=== PATIENT | male | born 1955 | race Caucasian/White ===

== ENCOUNTER 2017-08-12 09:10 | Emergency (ER) | payer OTHER ==
[~2017-08-12] VITALS: Ht 200.7 cm; Wt 80.0 kg
[2017-08-12 09:42] LABS: HEMATOCRIT 38.6 % (39.0-50.0); HEMOGLOBIN 13.8 g/dl (14.0-18.0); IMMATURE GRANULOCYTES 0.2 % (0.0-1.0); MEAN CORPUSCULAR HGB 34.3 pG CALC (26.0-32.0); MEAN CORPUSCULAR HGB CONC 35.8 g/L CALC (32.0-36.0); NEUT# 5.83 thou/uL (1.82-7.42); RED BLOOD COUNT 4.02 mill/uL (4.70-6.10); RED CELL DISTRI WIDTH 12.4 % (11.5-15.5)
[2017-08-12 09:48] LABS: ALBUMIN 4.2 g/dL (3.2-5.0); ALKALINE PHOSPHATASE 85 u/l (38-126); ANION GAP 15 (6-22 (CALC)); BILIRUBIN, TOTAL 0.8 mg/dL (0.0-1.4); BUN 6 mg/dL (8-23); BUN/CREATININE RATIO 10 (12-20 (CALC)); CALCIUM 9.2 mg/dL (8.4-10.2); CARBON DIOXIDE 22 mmol/l (22-30); CHLORIDE 104 mmol/l (95-108); CREATININE 0.6 mg/dL (0.7-1.3); ETHYL ALCOHOL 0 mg/dl (0-30); GFR > 60 ML/MIN (>=60 (CALC)); GFR FOR AFR.AMER. > 60 ML/MIN (>=60 (CALC)); GLUCOSE 81 mg/dL (82-115); POTASSIUM 4.4 mmol/l (3.5-5.1); SGOT/AST 35 u/l (19-48); SGPT/ALT 35 u/l (11-66); SODIUM 137 mmol/l (137-146); TOTAL PROTEIN 7.8 g/dL (6.3-8.2)
[2017-08-12 09:56] LABS: URINE BILIRUBIN - DIPSTICK NEGATIVE (NEGATIVE); URINE BLOOD DIPSTICK NEGATIVE (NEGATIVE); URINE CLARITY CLEAR; URINE COLOR YELLOW; URINE GLUCOSE - DIPSTICK NEGATIVE (NEGATIVE); URINE KETONE NEGATIVE (NEGATIVE); URINE LEUK ESTERASE NEGATIVE (NEGATIVE); URINE NITRITE - DIPSTICK NEGATIVE (Negative); URINE PH 7.5 (4.5-8.0); URINE PROTEIN - DIPSTICK NEGATIVE (NEG-TRACE); URINE SPECIFIC GRAVITY 1.015; URINE UROBILINOGEN - DIPSTICK 0.2 E.U./dL (0.2)
[2017-08-12 09:59] LABS: MYOGLOBIN 40 ng/mL (0 - 121)
[2017-08-12 10:00] LABS: COCAINE NEGATIVE (NEGATIVE); METHADONE NEGATIVE (NEGATIVE); TETRAHYDROCANNABIONOL POSITIVE (NEGATIVE)
[2017-08-12 10:01] LABS: BARBITURATES NEGATIVE (NEGATIVE); OXCYCODONE NEGATIVE (NEGATIVE); TRICYLIC ANTIDEPRESSANTS NEGATIVE (NEGATIVE)
[2017-08-12] MEDS ORDERED: TAMSULOSIN HCL0.4 MG PO (10:07)
[2017-08-12] MEDS ORDERED: LEVETIRACETAM1000 MG PO (10:58)
[2017-08-12] MEDS ORDERED: HYDROCO/APAP1 TA9 PO (10:59)
[2017-08-12] MEDS ORDERED: CILOSTAZOL100 MG PO (11:00)
[2017-08-12] MEDS ORDERED: PAROXETINE10 MG PO (11:00)
[2017-08-12 13:03] VITALS: BP 179/91
== END 2017-08-12 13:09 | disposition home or self-care (01) | DRG 312 ==
LOC: ED 09:10
PROVIDERS: Emergency Medicine
PROC: 0HQ1XZZ Repair Face Skin, External Approach (ICD-10-PCS; principal; 2017-08-12)
DX: R55 Syncope and collapse (principal); I10 Essential (primary) hypertension; S01.81XA Laceration without foreign body of other part of head, initial encounter; R42 Dizziness and giddiness; R51 Headache; Y92.009 Unspecified place in unspecified non-institutional (private) residence as the place of occurrence of the external cause; Z91.19 Patient's noncompliance with other medical treatment and regimen

== ENCOUNTER 2018-07-30 10:30 | Emergency (ER) | payer MEDICAID ==
[~2018-07-30] VITALS: Ht 200.7 cm; Wt 90.0 kg
[~2018-07-30 10:30] MED LIST: CILOSTAZOL100 MG PO; HYDROCO/APAP1 TA9 PO; LEVETIRACETAM1000 MG PO; PAROXETINE10 MG PO; TAMSULOSIN HCL0.4 MG PO
[2018-07-30] MEDS ORDERED: ORPHENADRINE100 MG PO (13:00)
[2018-07-30] MEDS ORDERED: IBUPROFEN600 MG PO (13:00)
[2018-07-30] MEDS ORDERED: LORTAB 7.57.5 MG PO (13:00)
[2018-07-30] MEDS ORDERED: NARCAN4 MG/0.1 M (13:00)
[2018-07-30] MEDS ORDERED: [UNRECOGNIZED DRUG - SUPPLY] EX (13:06)
[2018-07-30 13:11] VITALS: BP 136/85
== END 2018-07-30 13:23 | disposition home or self-care (01) ==
LOC: ED 10:30
DX: S22.049A Unspecified fracture of fourth thoracic vertebra, initial encounter for closed fracture (principal); M54.6 Pain in thoracic spine; R56.9 Unspecified convulsions; X58.XXXA Exposure to other specified factors, initial encounter; Y92.009 Unspecified place in unspecified non-institutional (private) residence as the place of occurrence of the external cause; F17.200 Nicotine dependence, unspecified, uncomplicated

== ENCOUNTER 2018-10-04 09:01 | Emergency (ER) | payer SELFPAY ==
[~2018-10-04] VITALS: Ht 200.7 cm; Wt 80.0 kg
[~2018-10-04 09:01] MED LIST changes: +IBUPROFEN600 MG PO; +LORTAB 7.57.5 MG PO; +NARCAN4 MG/0.1 M; +ORPHENADRINE100 MG PO; +[UNRECOGNIZED DRUG - SUPPLY] EX
[2018-10-04 10:07] LABS: HEMATOCRIT 41.4 % (39.0-50.0); HEMOGLOBIN 14.3 g/dl (14.0-18.0); IMMATURE GRANULOCYTES 0.1 % (0.0-5.0); MEAN CELL VOLUME 96.3 fL CALC (80.0-100.0); MEAN CORPUSCULAR HGB 33.3 pG CALC (26.0-32.0); MEAN CORPUSCULAR HGB CONC 34.5 g/L CALC (32.0-36.0); NEUT# 6.11 thou/uL (1.82-7.42); RED BLOOD COUNT 4.3 mill/uL (4.70-6.10); RED CELL DISTRI WIDTH 13.5 % (11.5-15.5)
[2018-10-04 10:27] LABS: PROTHROMBIN TIME 10.3 SECONDS (9.0-12.5)
[2018-10-04 10:32] LABS: ALBUMIN 4.2 g/dL (3.2-5.0); ALKALINE PHOSPHATASE 80 u/l (38-126); ANION GAP 14 (6-22 (CALC)); BILIRUBIN, TOTAL 1.1 mg/dL (0.0-1.4); BUN 6 mg/dL (8-23); BUN/CREATININE RATIO 9 (12-20 (CALC)); CARBON DIOXIDE 27 mmol/l (22-30); CHLORIDE 98 mmol/l (95-108); CREATININE 0.7 mg/dL (0.7-1.3); GFR > 60 ML/MIN (>=60 (CALC)); GFR FOR AFR.AMER. > 60 ML/MIN (>=60 (CALC)); POTASSIUM 3.9 mmol/l (3.5-5.1); SGOT/AST 21 u/l (19-48); SODIUM 134 mmol/l (137-146); TOTAL PROTEIN 8.1 g/dL (6.3-8.2)
[2018-10-04 11:42] LABS: URINE BILIRUBIN - DIPSTICK NEGATIVE (NEGATIVE); URINE BLOOD DIPSTICK NEGATIVE (NEGATIVE); URINE CLARITY CLEAR; URINE COLOR YELLOW; URINE GLUCOSE - DIPSTICK NEGATIVE (NEGATIVE); URINE KETONE TRACE mg/dL (NEGATIVE); URINE LEUK ESTERASE NEGATIVE (NEGATIVE); URINE NITRITE - DIPSTICK NEGATIVE (Negative); URINE PH 7.5 (4.5-8.0); URINE PROTEIN - DIPSTICK NEGATIVE (NEG-TRACE); URINE UROBILINOGEN - DIPSTICK 0.2 E.U./dL (0.2)
[2018-10-04 11:45] LABS: BARBITURATES NEGATIVE (NEGATIVE); COCAINE NEGATIVE (NEGATIVE); METHADONE NEGATIVE (NEGATIVE); OXCYCODONE NEGATIVE (NEGATIVE); TETRAHYDROCANNABIONOL POSITIVE (NEGATIVE); TRICYLIC ANTIDEPRESSANTS NEGATIVE (NEGATIVE)
[2018-10-04 15:42] VITALS: BP 140/87
== END 2018-10-04 15:42 | disposition short-term general hospital (02) | DRG 200 ==
LOC: ED 09:01
PROVIDERS: Emergency Medicine
DX: J93.9 Pneumothorax, unspecified (principal); I47.0 Re-entry ventricular arrhythmia; F20.0 Paranoid schizophrenia; R55 Syncope and collapse; F17.200 Nicotine dependence, unspecified, uncomplicated; M54.2 Cervicalgia; Y93.01 Activity, walking, marching and hiking; Y92.414 Local residential or business street as the place of occurrence of the external cause

== ENCOUNTER 2019-03-05 10:29 | Emergency (ER) | payer OTHER ==
[~2019-03-05] VITALS: Ht 200.7 cm; Wt 90.0 kg
[2019-03-05 11:19] LABS: HEMATOCRIT 39.5 % (39.0-50.0); HEMOGLOBIN 13.6 g/dl (14.0-18.0); IMMATURE GRANULOCYTES 0.5 % (0.0-5.0); MEAN CELL VOLUME 95.6 fL CALC (80.0-100.0); MEAN CORPUSCULAR HGB 32.9 pG CALC (26.0-32.0); MEAN CORPUSCULAR HGB CONC 34.4 g/L CALC (32.0-36.0); NEUT# 5.28 thou/uL (1.82-7.42); RED BLOOD COUNT 4.13 mill/uL (4.70-6.10); RED CELL DISTRI WIDTH 12.5 % (11.5-15.5)
[2019-03-05 11:21] LABS: ALBUMIN 4.3 g/dL (3.2-5.0); ALKALINE PHOSPHATASE 90 u/l (38-126); ANION GAP 13 (6-22 (CALC)); BILIRUBIN, TOTAL 0.7 mg/dL (0.0-1.4); BUN 9 mg/dL (8-23); BUN/CREATININE RATIO 16 (12-20 (CALC)); CARBON DIOXIDE 24 mmol/l (22-30); CHLORIDE 96 mmol/l (95-108); CREATININE 0.6 mg/dL (0.7-1.3); GFR > 60 ML/MIN (>=60 (CALC)); GFR FOR AFR.AMER. > 60 ML/MIN (>=60 (CALC)); POTASSIUM 4.6 mmol/l (3.5-5.1); SGOT/AST 32 u/l (19-48); SODIUM 128 mmol/l (137-146); TOTAL PROTEIN 8.1 g/dL (6.3-8.2)
[2019-03-05] MEDS ORDERED: ONDANSETRON4 MG PO (13:05)
[2019-03-05] MEDS ORDERED: HYDROCO/APAP1 TA9 PO (13:05)
[2019-03-05] MEDS ORDERED: MOTRIN400 MG PO (13:05)
[2019-03-05 13:20] VITALS: BP 117/63
== END 2019-03-05 13:39 | disposition left against medical advice (07) ==
LOC: ED 10:29
PROVIDERS: Family Medicine
DX: S22.41XA Multiple fractures of ribs, right side, initial encounter for closed fracture (principal); S22.059A Unspecified fracture of T5-T6 vertebra, initial encounter for closed fracture; E87.1 Hypo-osmolality and hyponatremia; K56.7 Ileus, unspecified; I10 Essential (primary) hypertension; J44.9 Chronic obstructive pulmonary disease, unspecified; F17.200 Nicotine dependence, unspecified, uncomplicated; W18.39XA Other fall on same level, initial encounter; Z91.19 Patient's noncompliance with other medical treatment and regimen; R55 Syncope and collapse; R42 Dizziness and giddiness; R11.0 Nausea
CPT/HCPCS: Q9967

== ENCOUNTER 2020-03-15 07:36 | Day surgery (SDC) | payer MEDICAID ==
[~2020-03-15 07:36] MED LIST changes: +ALPRAZOLAM ER0.5 MG PO; +FINASTERIDE5 MG PO; +LISINOPRIL20 MG PO; +MOTRIN400 MG PO; +ONDANSETRON4 MG PO; +VITAMIN B-1100 M1 PO
[2020-03-15 08:03] LABS: BARBITURATES NEGATIVE (NEGATIVE); COCAINE NEGATIVE (NEGATIVE); METHADONE NEGATIVE (NEGATIVE); TETRAHYDROCANNABIONOL POSITIVE (NEGATIVE); TRICYLIC ANTIDEPRESSANTS NEGATIVE (NEGATIVE)
[2020-03-15 08:04] LABS: OXCYCODONE NEGATIVE (NEGATIVE)
[2020-03-15 10:14] VITALS: BP 133/78
== END 2020-03-15 10:35 | disposition home or self-care (01) ==
LOC: ENDO 07:36 → ORM 08:45 → ENDO 08:45
PROVIDERS: ATTEND Surgery
DX: D12.5 Benign neoplasm of sigmoid colon (principal); K63.5 Polyp of colon; Q43.9 Congenital malformation of intestine, unspecified; I10 Essential (primary) hypertension; J44.9 Chronic obstructive pulmonary disease, unspecified; F17.210 Nicotine dependence, cigarettes, uncomplicated; Z11.59 Encounter for screening for other viral diseases

== ENCOUNTER 2020-06-29 11:04 | Emergency (ER) | payer MEDICARE, MEDICAID ==
[~2020-06-29] VITALS: Ht 200.7 cm; Wt 100.0 kg
[2020-06-29 12:29] LABS: HEMATOCRIT 38.6 % (39.0-50.0); IMMATURE GRANULOCYTES 0.4 % (0.0-5.0); MEAN CELL VOLUME 94.6 fL CALC (80.0-100.0); MEAN CORPUSCULAR HGB 31.9 pG CALC (26.0-32.0); MEAN CORPUSCULAR HGB CONC 33.7 g/dL CAL (32.0-36.0); NEUT# 5.2 thou/uL (1.82-7.42); RED BLOOD COUNT 4.08 mill/uL (4.70-6.10); RED CELL DISTRI WIDTH 12.5 % (11.5-15.5)
[2020-06-29 12:50] LABS: ALKALINE PHOSPHATASE 75 u/l (38-126); ANION GAP 12 (6-22 (CALC)); BILIRUBIN, TOTAL 0.9 mg/dL (0.0-1.4); BUN 6 mg/dL (8-23); BUN/CREATININE RATIO 10 (12-20 (CALC)); CARBON DIOXIDE 26 mmol/l (22-30); CHLORIDE 98 mmol/l (95-108); CREATININE 0.7 mg/dL (0.7-1.3); GFR > 60 ML/MIN (>=60 (CALC)); GFR FOR AFR.AMER. > 60 ML/MIN (>=60 (CALC)); POTASSIUM 3.9 mmol/l (3.5-5.1); SGOT/AST 36 u/l (19-48); SODIUM 132 mmol/l (137-146); TOTAL PROTEIN 7.7 g/dL (6.3-8.2)
[2020-06-29] MEDS ORDERED: IBUPROFEN600 MG PO (13:48)
[2020-06-29] MEDS ORDERED: CYCLOBENZAPR5 MG PO (13:48)
[2020-06-29] MEDS ORDERED: ONDANSETRON4 MG PO (13:49)
[2020-06-29 14:01] VITALS: BP 146/71
== END 2020-06-29 13:56 | disposition home or self-care (01) ==
LOC: ED 11:04
PROVIDERS: Family Medicine
DX: M54.6 Pain in thoracic spine (principal); M54.5 Low back pain; R47.02 Dysphasia; I10 Essential (primary) hypertension; J44.9 Chronic obstructive pulmonary disease, unspecified; F17.200 Nicotine dependence, unspecified, uncomplicated; W18.30XA Fall on same level, unspecified, initial encounter; R94.31 Abnormal electrocardiogram [ECG] [EKG]

== ENCOUNTER 2020-11-10 17:59 | Emergency (ER) | payer MEDICARE ==
[~2020-11-10] VITALS: Ht 200.7 cm; Wt 91.6 kg
[~2020-11-10 17:59] MED LIST changes: +CYCLOBENZAPR5 MG PO
[2020-11-10 18:39] LABS: HEMATOCRIT 35.4 % (39.0-50.0); HEMOGLOBIN 12.1 g/dl (14.0-18.0); IMMATURE GRANULOCYTES 0.5 % (0.0-5.0); MEAN CELL VOLUME 96.5 fL CALC (80.0-100.0); MEAN CORPUSCULAR HGB CONC 34.2 g/dL CAL (32.0-36.0); NEUT# 6.24 thou/uL (1.82-7.42); RED BLOOD COUNT 3.67 mill/uL (4.70-6.10); RED CELL DISTRI WIDTH 13.2 % (11.5-15.5)
[2020-11-10 19:01] LABS: ALBUMIN 3.8 g/dL (3.2-5.0); ALKALINE PHOSPHATASE 73 u/l (38-126); BUN 9 mg/dL (8-23); BUN/CREATININE RATIO 11 (12-20 (CALC)); CHLORIDE 98 mmol/l (95-108); CREATININE 0.8 mg/dL (0.7-1.3); GFR > 60 ML/MIN (>=60 (CALC)); GFR FOR AFR.AMER. > 60 ML/MIN (>=60 (CALC)); SGOT/AST 56 u/l (19-48); TOTAL PROTEIN 7.3 g/dL (6.3-8.2)
[2020-11-10 19:03] LABS: ANION GAP 13 (6-22 (CALC)); BILIRUBIN, TOTAL 1.4 mg/dL (0.0-1.4); CARBON DIOXIDE 18 mmol/l (22-30); POTASSIUM 5.3 mmol/l (3.5-5.1); SODIUM 124 mmol/l (137-146)
[2020-11-10] MEDS ORDERED: LIPITOR20 M1 PO (20:48)
[2020-11-10 21:54] VITALS: BP 111/59
== END 2020-11-10 21:54 | disposition short-term general hospital (02) ==
LOC: ED 17:59
PROVIDERS: Family Medicine
DX: G40.409 Other generalized epilepsy and epileptic syndromes, not intractable, without status epilepticus (principal); R07.9 Chest pain, unspecified; I10 Essential (primary) hypertension; J44.9 Chronic obstructive pulmonary disease, unspecified; E78.5 Hyperlipidemia, unspecified; F41.9 Anxiety disorder, unspecified; F17.200 Nicotine dependence, unspecified, uncomplicated; Z20.822 Contact with and (suspected) exposure to COVID-19
CPT/HCPCS: J1953

== ENCOUNTER 2021-02-04 | Emergency (ER) | payer MEDICARE, MEDICAID ==
[~2021-02-04] MED LIST changes: +LIPITOR20 M1 PO
[2021-02-04] MEDS ORDERED: CEPHALEXIN500 M1 PO (11:26)
[2021-02-04] MEDS ORDERED: BACTRIM DS1 TAB PO (11:26)
[2021-02-04] MEDS ORDERED: KEFLEX500 M1 PO (12:08)
== END 2021-02-04 12:56 | disposition home or self-care (01) ==
PROC: 0H9FXZZ Drainage of Right Hand Skin, External Approach (ICD-10-PCS; principal; 2021-02-04)
DX: L03.011 Cellulitis of right finger (principal); I10 Essential (primary) hypertension; E78.5 Hyperlipidemia, unspecified; J44.9 Chronic obstructive pulmonary disease, unspecified; F41.9 Anxiety disorder, unspecified; F17.210 Nicotine dependence, cigarettes, uncomplicated

== ENCOUNTER 2021-02-24 10:24 | Emergency (ER) | payer MEDICARE, MEDICAID ==
[~2021-02-24 10:24] MED LIST changes: +BACTRIM DS1 TAB PO; +CEPHALEXIN500 M1 PO; +KEFLEX500 M1 PO
[2021-02-24 11:32] LABS: HEMATOCRIT 35.3 % (39.0-50.0); HEMOGLOBIN 11.9 g/dl (14.0-18.0); IMMATURE GRANULOCYTES 0.2 % (0.0-5.0); MEAN CELL VOLUME 96.2 fL CALC (80.0-100.0); MEAN CORPUSCULAR HGB 32.4 pG CALC (26.0-32.0); MEAN CORPUSCULAR HGB CONC 33.7 g/dL CAL (32.0-36.0); NEUT# 2.99 thou/uL (1.82-7.42); RED BLOOD COUNT 3.67 mill/uL (4.70-6.10); RED CELL DISTRI WIDTH 12.4 % (11.5-15.5)
[2021-02-24 11:46] LABS: ALBUMIN 3.8 g/dL (3.2-5.0); ALKALINE PHOSPHATASE 81 u/l (38-126); BUN 10 mg/dL (8-23); BUN/CREATININE RATIO 16 (12-20 (CALC)); CHLORIDE 98 mmol/l (95-108); CREATININE 0.6 mg/dL (0.7-1.3); GFR > 60 ML/MIN (>=60 (CALC)); GFR FOR AFR.AMER. > 60 ML/MIN (>=60 (CALC)); SGOT/AST 36 u/l (19-48); SODIUM 128 mmol/l (137-146); TOTAL PROTEIN 7.6 g/dL (6.3-8.2)
[2021-02-24 11:47] LABS: ANION GAP 7 (6-22 (CALC)); BILIRUBIN, TOTAL 0.6 mg/dL (0.0-1.4); CARBON DIOXIDE 27 mmol/l (22-30); POTASSIUM 4.2 mmol/l (3.5-5.1)
[2021-02-24 12:26] LABS: ACT PARTIAL THROMBO TIME 30.2 SECONDS (20.0-32.5); PROTHROMBIN TIME 10.4 SECONDS (9.0-12.5)
[2021-02-24] MEDS ORDERED: ULTRAM50 MG PO (13:26)
[2021-02-24 13:38] VITALS: BP 183/96
== END 2021-02-24 13:39 | disposition home or self-care (01) ==
LOC: ED 10:24
DX: L76.32 Postprocedural hematoma of skin and subcutaneous tissue following other procedure (principal); I10 Essential (primary) hypertension; F41.9 Anxiety disorder, unspecified; J44.9 Chronic obstructive pulmonary disease, unspecified; E78.5 Hyperlipidemia, unspecified; F17.210 Nicotine dependence, cigarettes, uncomplicated; Y83.1 Surgical operation with implant of artificial internal device as the cause of abnormal reaction of the patient, or of later complication, without mention of misadventure at the time of the procedure; Z95.820 Peripheral vascular angioplasty status with implants and grafts

== ENCOUNTER 2021-03-24 09:19 | Observation (INO) | payer MEDICARE, MEDICAID ==
[~2021-03-24] VITALS: Ht 200.7 cm; Wt 88.0 kg
[~2021-03-24 09:19] MED LIST changes: +ULTRAM50 MG PO
--- NOTE | 2021-03-24 09:19 | NUR ---
PT TO ROOM VIA EMS
[2021-03-24 09:54] LABS: HEMATOCRIT 35.4 % (39.0-50.0); IMMATURE GRANULOCYTES 0.3 % (0.0-5.0); MEAN CELL VOLUME 96.5 fL CALC (80.0-100.0); MEAN CORPUSCULAR HGB 32.7 pG CALC (26.0-32.0); MEAN CORPUSCULAR HGB CONC 33.9 g/dL CAL (32.0-36.0); NEUT# 8.02 thou/uL (1.82-7.42); RED BLOOD COUNT 3.67 mill/uL (4.70-6.10); RED CELL DISTRI WIDTH 12.8 % (11.5-15.5)
--- NOTE | 2021-03-24 10:30 | NUR ---
PT STATES THAT HIS INJURY OCCURED YESTERDAY AND THAT HE HAS NOT BEEN ABLE TO SLEEP ALL NIGHT. IT WAS SAID THAT HE FELL, AND HAD A SEIZURE. PT DOES SAY THAT HE DRINKS ABOUT 6-7 ALCOHOLIC DRINKS A DAY AND THAT HE HAS NOT CONSUMED ANY TODAY. HE IS SHACKY AND TREMBLING. HAMILTON. AOX4. MENTIONS PAIN 10/10 IN THE RIGHT KNEE THAT IS SWOLLEN. PMS+ IN THAT EXTREM. DENIES HITTING HIS HEAD.
[2021-03-24 10:46] LABS: ALBUMIN 3.4 g/dL (3.2-5.0); ALKALINE PHOSPHATASE 83 u/l (38-126); ANION GAP 10 (6-22 (CALC)); BILIRUBIN, TOTAL 0.5 mg/dL (0.0-1.4); BUN 8 mg/dL (8-23); BUN/CREATININE RATIO 13 (12-20 (CALC)); CARBON DIOXIDE 24 mmol/l (22-30); CHLORIDE 97 mmol/l (95-108); CREATININE 0.6 mg/dL (0.7-1.3); ETHYL ALCOHOL 0 mg/dl (0-30); GFR > 60 ML/MIN (>=60 (CALC)); GFR FOR AFR.AMER. > 60 ML/MIN (>=60 (CALC)); POTASSIUM 4.7 mmol/l (3.5-5.1); SGOT/AST 33 u/l (19-48); SODIUM 125 mmol/l (137-146); TOTAL PROTEIN 7.1 g/dL (6.3-8.2)
--- NOTE | 2021-03-24 11:13 | NUR ---
PT STATES THAT PAIN HAS SUBSIDED TO 7/10. EXPLAINATION OF PAIN MEDICATION IS GIVEN AND PLAN OF CARE DISCUSSED
--- NOTE | 2021-03-24 12:03 | NUR ---
PT NOTIFIED OF PENDING TRANSFER TO [facility] FOR CT SCAN. PLAN OF CARE DISCUSSED
--- NOTE | 2021-03-24 13:33 | NUR ---
PT LEFT TO [facility] FOR CT AND WILL RETURN. PT WAS STABLE AND MEDS FOR PAIN GIVEN BEFORE DEPARTURE
--- NOTE | 2021-03-24 14:46 | NUR ---
PT CONTINUES TO BE AT [facility]
--- NOTE | 2021-03-24 16:27 | NUR ---
PT RETURNED FROM [facility]. HE STATES THAT HE IS IN PAIN. IS NOTIFIED
[2021-03-24 17:10] LABS: URINE BILIRUBIN - DIPSTICK NEGATIVE (NEGATIVE); URINE BLOOD DIPSTICK NEGATIVE (NEGATIVE); URINE COLOR YELLOW; URINE GLUCOSE - DIPSTICK NEGATIVE (NEGATIVE); URINE KETONE NEGATIVE (NEGATIVE); URINE LEUK ESTERASE NEGATIVE (NEGATIVE); URINE PROTEIN - DIPSTICK NEGATIVE (NEG-TRACE); URINE UROBILINOGEN - DIPSTICK 0.2 E.U./dL (0.2)
[2021-03-24 17:11] LABS: URINE NITRITE - DIPSTICK NEGATIVE (Negative)
--- NOTE | 2021-03-24 18:29 | NUR ---
GAVE REPORT TO SCOTT
[2021-03-24 18:40] VITALS: BP 158/95
--- NOTE | 2021-03-24 18:40 | NUR ---
PT TRANSPORTED TO [facility] STABLE AND IN NO DISTRESS. CARE ASSUMED TO SCOTT Admission Note Report Given to: SCOTT Transported by: Wheelchair X Stretcher Transported with: X Nurse Transporter X Patent IV O2 X Location Manager Location: ICU X MS2
--- NOTE | 2021-03-24 18:41 | NUR ---
PT ARRIVED TO THE UNIT VIA STRETCHER WITH STAFF. IV SITE INTACT, SIDE RAILS HAVE BEEN PADDED. DUE TO POSSIBLE SEIZURE LAST NIGHT.
--- NOTE | 2021-03-24 20:00 | NUR ---
PT ARRIVED ON FLOOR ESCORTED BY ER STAFF VIA STRETCHER. KNEE IMMOBILIZER TO RLE D/T FX. PT COMPLAINS OF SEVERE PAIN TO RLE. PAIN MEDS ADMINSTERED. ALL ASSESSMENTS COMPLETED, SEE DOCUMENTATION. IV SITE TO LAC PLACED BY EMS, ATTEMPTED TO START A NEW LINE WITHOUS SUCCESS. CURRENTLY STILL USING EMS SITE. PT DOING WELL ON THE FLOOR SINCE ADMITTED TO THE UNIT. SAFETY PRECAUTIONS IN PLACE, BED IN LOWEST POSITION, CALL LIGHT WITHIN REACH. WILL MONITOR
[2021-03-25] VITALS (7 sets, daily range): BP systolic 125–162; BP diastolic 78–97
--- NOTE | 2021-03-25 01:29 | NUR ---
PT RESTING IN BED WITH HIS EYES CLOSED. REPORTS CONTOMIED PAIN, ADVISED OF THE PHYSICIAN ORDER THAT MEDS ARE TO BE GIVEN Q6HRS NEEDED. PT VERBALIZED UNDERSTANDING. BREATHING EVEN AND LABORED, NO S/S OF DISTRESS NOTED. SAFETY PRECAUTIONS IN PLACE.
--- NOTE | 2021-03-25 02:42 | NUR ---
PT AWAKE AND SITTING UP IN BED. CONTINUES TO C/O PAIN IN THE RLE. DISCUSSED WITH PT THE NEED TO COMPLETE THE MEDICATION RECONCILIATION, PT REFUSED AND STATED, "i DO NOT KNOW ALL OF MY MEDICATIONS, I NEED MY HERE" IS UNAVAILBLE UNTIL LATER IN THE DAY. WILL ADVISE DAY SHIFT
--- NOTE | 2021-03-25 04:13 | NUR ---
PT CONTINUES WITH SEVERE PAIN IN RLE, NOTIFIED fleet technician ADMINISTRATIVE SUPPORT ASSOCIATE. NEW ORDER RECEIVED FOR A ONE TIME DOSE OF MORPHINE 4MG IV. MEDICATION ADMINSTERED PER ORDER. WILL REASSESS.
[2021-03-25 06:02] LABS: HEMOGLOBIN 10.8 g/dl (14.0-18.0); MEAN CORPUSCULAR HGB 32.7 pG CALC (26.0-32.0); MEAN CORPUSCULAR HGB CONC 33.8 g/dL CAL (32.0-36.0); RED BLOOD COUNT 3.3 mill/uL (4.70-6.10); RED CELL DISTRI WIDTH 12.9 % (11.5-15.5)
--- NOTE | 2021-03-25 06:08 | NUR ---
PT RESTING IN BED WITH EYES CLOSED. ORDER RECEIVED FOR MORPHINE 4MG IV, PT REPORTS DECREASED [AIN LEVELS FOLLOWING MORPHINR ADMINSTRATION. CONSULT CALLED TO DR. EM OFFICE, SPOKE WITH VASU WITH DOCTORS TRIMMER OPERATOR THREE KNIFE SERVICE, PHYSICIAN AWARE OF CONSULT. SAFETY PRECAUTIONS IN PLACE WILL MONITOR
[2021-03-25 06:28] LABS: ANION GAP 8 (6-22 (CALC)); BUN 7 mg/dL (8-23); BUN/CREATININE RATIO 13 (12-20 (CALC)); CALCULATED LDLCHOLESTEROL 38 mg/dL (62-129 (CALC)); CARBON DIOXIDE 23 mmol/l (22-30); CHLORIDE 102 mmol/l (95-108); CHOLESTEROL HDL RATIO 2.1 (<4.4 (CALC)); CREATININE 0.5 mg/dL (0.7-1.3); GFR > 60 ML/MIN (>=60 (CALC)); GFR FOR AFR.AMER. > 60 ML/MIN (>=60 (CALC)); HDL CHOLESTEROL 46 mg/dL (>=40); MAGNESIUM 1.7 mg/dL (1.6-2.3); SODIUM 129 mmol/l (137-146); TOTAL CHOLESTEROL 97 mg/dl (0-199); TOTAL TRIGLYCERIDES 66 mg/dl (30-149); VLDL CHOLESTROL 13 mg/dl (4-45 (CALC))
--- NOTE | 2021-03-25 09:00 | NUR ---
PT SEEN AWAKE, ALERT, ORIENTED X 3. LUNGS CLEAR, RA. PT WITH BRACE TO RLE, REPOSITIONED FOR COMFORT, PT WAS FEELING IT DIG INTO HIS LEG. PT AWARE OF PENDING MRI THIS MORNING. IV INFILTRATED AND WAS RESTARTED TO RFA #20.
[2021-03-25] MEDS ORDERED: ZESTRIL10 M1 PO (12:39)
[2021-03-25] MEDS ORDERED: ALPRAZOLAM ER1 MG PO (12:39)
[2021-03-25] MEDS ORDERED: PAROXETINE30 M1 PO (12:41)
[2021-03-25] MEDS ORDERED: MOTRIN800 MG PO (12:43)
[2021-03-25] MEDS ORDERED: VOLTAREN1%GEL TOP ×2 (12:45→12:46)
--- NOTE | 2021-03-25 13:00 | NUR ---
PT HAS BEEN TO MRI AND BACK, TOLERATED MOST OF THE TEST, HE SAYS. PT IS ABLE TO TRANSFER HIMSELF TO BED WITH ASSIST. PAIN TOLERABLE WHEN NOT MOVING.
[2021-03-25] MEDS ORDERED: MAGNESIUM OXID400 M2 PO (13:21)
[2021-03-25] MEDS ORDERED: ASPIRIN 81 LOW81 MG PO (13:23)
[2021-03-25] MEDS ORDERED: VENTOLIN HFA IN (13:26)
[2021-03-25] MEDS ORDERED: VITAMIN B PO (13:27)
--- NOTE | 2021-03-25 17:21 | NUR ---
PT RECEIVED ATIVAN THIS AFTERNOON, STATES THAT HE WAS ABLE TO GET TO SLEEP. PAIN IS SOMEWHAT CONTROLLED WITH LORTAB, BUT IS IN HIGH PAIN WHEN IT BECOMES AVAILABLE AGAIN.
--- NOTE | 2021-03-25 20:10 | NUR ---
PT AWAKE RESTING IN BED. ALERT AND ORIENTED X4. RESP EVEN AND UNLABORED. SKIN WARM AND DRY. LUNGS CLEAR BILAT. ABD SOFT AND NONDISTENDED WITH BOWEL SOUNDS PRESENT. NO LOWER EXT EDEMA NOTED. PEDAL PULSES PALPATED BILAT. RT LEG IMMOBILIZER BRACE IS ON. IV SITE PATENT IN RT FOREARM WITH NSS AT 100CC/HR. PT DOES STATES HE HAS ACHING IN RT LEG. ASSISTED WITH REPOSITIONING. FOOT WARM TO TOUCH WITH GOOD CAPILLARY REFILL AND PEDAL PULSES PALPATED. TELE SR WITH IVCD AND PACS. FREQUENT ROUNDS MADE. CALL RENNER WITH IN REACH.
--- NOTE | 2021-03-25 20:49 | NUR ---
PT AWAKE RESTING IN BED. MEDICATED WITH LORTAB 7.5MG ONE TAB P.O FOR RT LEG PAIN. PT ASSISTED WITH REPOSITIONING. IV SITE PATENT. CALL RENNER WITHIN REACH.
--- NOTE | 2021-03-25 22:38 | NUR ---
PT MEDICATED WITH ATIVAN 1MG P.O FOR SLEEP. RESP EVEN AND UNLABORED. PT PLEASANT , CALM AND APPROPRAITE. IV SITE PATENT. NO DISTRESS NOTED. CALL RENNER WITHIN REACH.
--- NOTE | 2021-03-26 00:15 | NUR ---
PT RESTING IN BED WITH EYES CLOSED. RESP EVEN AND UNLABORED. NO DISTRESS NOTED. IV SITE PATENT. RT LEG IMMOBILIZER IS ON. FREQUENT ROUNDS MADE. CALL RENNER WITHIN REACH.
--- NOTE | 2021-03-26 02:32 | NUR ---
PT RECEIVED FROM ED TO ROOM 273. ARRIVES VIA W/C ACCOMPANIED BY ALBINO SPANN. PT AMBULATORY TO BED. GAIT STEADY. PT MEDICATED IN THE ED AND DENIES PAIN AT THIS TIME. ORIENTED TO UNIT, ROOM, CALL RENNER, LIGHTS, TV. ICE WATER PROVIDED. CALL RENNER WITHIN REACH. AGREES TO CALL PRN.
[2021-03-26 03:33] VITALS: BP 137/84
--- NOTE | 2021-03-26 03:56 | NUR ---
PT AWAKE RESTING IN BED. MEDICATED WITH LORTAB 7.5MG FOR RT LEG DISCOMFORT. IV SITE PATENT. RESP EVEN AND UNLABORED NO DISTRESS NOTED. FREQUENT ROUNDS MADE. CALL RENNER WITHIN REACH.
[2021-03-26 05:00] LABS: HEMATOCRIT 31.7 % (39.0-50.0); HEMOGLOBIN 10.6 g/dl (14.0-18.0); MEAN CELL VOLUME 98.4 fL CALC (80.0-100.0); MEAN CORPUSCULAR HGB 32.9 pG CALC (26.0-32.0); MEAN CORPUSCULAR HGB CONC 33.4 g/dL CAL (32.0-36.0); RED BLOOD COUNT 3.22 mill/uL (4.70-6.10); RED CELL DISTRI WIDTH 12.9 % (11.5-15.5)
[2021-03-26 05:22] LABS: ANION GAP 7 (6-22 (CALC)); BUN 5 mg/dL (8-23); BUN/CREATININE RATIO 10 (12-20 (CALC)); CARBON DIOXIDE 26 mmol/l (22-30); CHLORIDE 101 mmol/l (95-108); CREATININE 0.6 mg/dL (0.7-1.3); GFR > 60 ML/MIN (>=60 (CALC)); GFR FOR AFR.AMER. > 60 ML/MIN (>=60 (CALC)); POTASSIUM 3.8 mmol/l (3.5-5.1); SODIUM 130 mmol/l (137-146)
[2021-03-26 07:10] VITALS: BP 173/90
--- NOTE | 2021-03-26 09:53 | NUR ---
PT ALERT AND ORIENTED X 3. PT AMBULATED WITH WALKER TO BR, GAIT STEADY WITH SOME DISCOMFORT. IMMOBILIZER IN PLACE. PT HOPES FOR DC TODAY. DR HAYES HAS SEEN PT.
[2021-03-26 11:43] VITALS: BP 149/82
--- NOTE | 2021-03-26 13:37 | NUR ---
PT IS WANTING TO LEAVE AMA. IS AT BEDSIDE WITH HIS CLOTHES. DR HAYES HAS BEEN MADE AWARE, BUT ASKED FOR TIME TO CONTACT DR ROTH.
--- NOTE | 2021-03-26 14:49 | NUR ---
PT LEAVES AGAINST MEDICAL ADVISE. ALON HORTA PUT IN DISCHARGE ORDERS. PT VERBALIZED UNDERSTANDING OF DC PAPERS, SIGNED AMA FORM. PT LEAVES [facility] BY WHEELCHAIR, ASSISTED INTO VEHICLE. PT IS IN STABLE CONDITION, HAS BRACE TO RIGHT LEG PROVIDING SUPPORT.
== END 2021-03-26 14:35 | disposition left against medical advice (07) ==
LOC: ED 09:19 → ED-I 16:53 → ED 17:17 → MS2 17:18
PROVIDERS: Emergency Medicine; Nurse Practitioner; ADMIT Internal Medicine; ATTEND Internal Medicine
DX: S72.491A Other fracture of lower end of right femur, initial encounter for closed fracture (principal); S82.001A Unspecified fracture of right patella, initial encounter for closed fracture; F10.139 Alcohol abuse with withdrawal, unspecified; R56.9 Unspecified convulsions; E87.1 Hypo-osmolality and hyponatremia; I10 Essential (primary) hypertension; J44.9 Chronic obstructive pulmonary disease, unspecified; F41.9 Anxiety disorder, unspecified; E78.5 Hyperlipidemia, unspecified; D64.9 Anemia, unspecified; N40.0 Benign prostatic hyperplasia without lower urinary tract symptoms; F32.9 Major depressive disorder, single episode, unspecified; F17.210 Nicotine dependence, cigarettes, uncomplicated; I73.9 Peripheral vascular disease, unspecified; W01.0XXA Fall on same level from slipping, tripping and stumbling without subsequent striking against object, initial encounter; Y92.481 Parking lot as the place of occurrence of the external cause; Z95.820 Peripheral vascular angioplasty status with implants and grafts; Z20.822 Contact with and (suspected) exposure to COVID-19
CPT/HCPCS: G0378; J1650; J2060

== ENCOUNTER 2021-03-30 11:45 | Emergency (ER) | payer MEDICARE, MEDICAID ==
[~2021-03-30] VITALS: Ht 200.7 cm; Wt 82.0 kg
[~2021-03-30 11:45] MED LIST changes: +ALPRAZOLAM ER1 MG PO; +ASPIRIN 81 LOW81 MG PO; +MAGNESIUM OXID400 M2 PO; +MOTRIN800 MG PO; +PAROXETINE30 M1 PO; +VENTOLIN HFA IN; +VITAMIN B PO; +VOLTAREN1%GEL TOP; +ZESTRIL10 M1 PO
[2021-03-30] MEDS ORDERED: PERCOCET 5/321 COMBO PO (17:10)
[2021-03-30 17:42] VITALS: BP 124/74
== END 2021-03-30 17:39 | disposition home or self-care (01) ==
LOC: ED 11:45
DX: S72.491D Other fracture of lower end of right femur, subsequent encounter for closed fracture with routine healing (principal); S82.001D Unspecified fracture of right patella, subsequent encounter for closed fracture with routine healing; I10 Essential (primary) hypertension; F41.9 Anxiety disorder, unspecified; J44.9 Chronic obstructive pulmonary disease, unspecified; E78.5 Hyperlipidemia, unspecified; F17.200 Nicotine dependence, unspecified, uncomplicated; W01.0XXD Fall on same level from slipping, tripping and stumbling without subsequent striking against object, subsequent encounter; Z95.820 Peripheral vascular angioplasty status with implants and grafts
CPT/HCPCS: L1830

== ENCOUNTER 2021-04-30 11:46 | Emergency (ER) | payer MEDICARE, MEDICAID ==
[~2021-04-30] VITALS: Ht 182.9 cm; Wt 100.0 kg
[~2021-04-30 11:46] MED LIST changes: +PERCOCET 5/321 COMBO PO
[2021-04-30 12:45] LABS: HEMATOCRIT 33.3 % (39.0-50.0); IMMATURE GRANULOCYTES 0.3 % (0.0-5.0); MEAN CELL VOLUME 97.1 fL CALC (80.0-100.0); MEAN CORPUSCULAR HGB 32.1 pG CALC (26.0-32.0); NEUT# 4.67 thou/uL (1.82-7.42); RED BLOOD COUNT 3.43 mill/uL (4.70-6.10); RED CELL DISTRI WIDTH 13.2 % (11.5-15.5)
[2021-04-30 14:03] LABS: ALBUMIN 3.7 g/dL (3.2-5.0); ALKALINE PHOSPHATASE 85 u/l (38-126); ANION GAP 12 (6-22 (CALC)); BILIRUBIN, TOTAL 1.6 mg/dL (0.0-1.4); BUN 8 mg/dL (8-23); BUN/CREATININE RATIO 16 (12-20 (CALC)); CARBON DIOXIDE 21 mmol/l (22-30); CHLORIDE 97 mmol/l (95-108); CREATININE 0.5 mg/dL (0.7-1.3); ETHYL ALCOHOL 0 mg/dl (0-30); GFR > 60 ML/MIN (>=60 (CALC)); GFR FOR AFR.AMER. > 60 ML/MIN (>=60 (CALC)); POTASSIUM 4.8 mmol/l (3.5-5.1); SGOT/AST 61 u/l (19-48); SODIUM 125 mmol/l (137-146)
[2021-04-30 14:14] LABS: MYOGLOBIN 226 ng/mL (0 - 121)
[2021-04-30 14:43] LABS: URINE BILIRUBIN - DIPSTICK NEGATIVE (NEGATIVE); URINE BLOOD DIPSTICK NEGATIVE (NEGATIVE); URINE COLOR YELLOW; URINE GLUCOSE - DIPSTICK NEGATIVE (NEGATIVE); URINE KETONE TRACE mg/dL (NEGATIVE); URINE LEUK ESTERASE NEGATIVE (NEGATIVE); URINE PROTEIN - DIPSTICK NEGATIVE (NEG-TRACE); URINE UROBILINOGEN - DIPSTICK 0.2 E.U./dL (0.2)
[2021-04-30 14:46] LABS: URINE NITRITE - DIPSTICK NEGATIVE (Negative)
[2021-04-30 18:00] VITALS: BP 122/75
== END 2021-04-30 18:09 ==
LOC: ED 11:46
PROC: 2W38X1Z Immobilization of Right Upper Extremity using Splint (ICD-10-PCS; principal; 2021-04-30)
DX: S52.021A Displaced fracture of olecranon process without intraarticular extension of right ulna, initial encounter for closed fracture (principal); J18.9 Pneumonia, unspecified organism; E87.1 Hypo-osmolality and hyponatremia; S50.01XA Contusion of right elbow, initial encounter; I10 Essential (primary) hypertension; J44.9 Chronic obstructive pulmonary disease, unspecified; E78.5 Hyperlipidemia, unspecified; F41.9 Anxiety disorder, unspecified; F17.200 Nicotine dependence, unspecified, uncomplicated; S72.401D Unspecified fracture of lower end of right femur, subsequent encounter for closed fracture with routine healing; X58.XXXD Exposure to other specified factors, subsequent encounter; W01.0XXA Fall on same level from slipping, tripping and stumbling without subsequent striking against object, initial encounter; Y92.002 Bathroom of unspecified non-institutional (private) residence as the place of occurrence of the external cause; Z95.820 Peripheral vascular angioplasty status with implants and grafts; Z20.822 Contact with and (suspected) exposure to COVID-19

== ENCOUNTER 2021-06-17 16:13 | Emergency (ER) | payer MEDICARE, MEDICAID ==
[~2021-06-17] VITALS: Ht 182.9 cm; Wt 82.0 kg
[2021-06-17 17:28] VITALS: BP 118/74
[2021-06-17 19:12] LABS: HEMATOCRIT 31.9 % (39.0-50.0); HEMOGLOBIN 10.1 g/dl (14.0-18.0); IMMATURE GRANULOCYTES 0.1 % (0.0-5.0); MEAN CELL VOLUME 95.8 fL CALC (80.0-100.0); MEAN CORPUSCULAR HGB 30.3 pG CALC (26.0-32.0); MEAN CORPUSCULAR HGB CONC 31.7 g/dL CAL (32.0-36.0); NEUT# 6.43 thou/uL (1.82-7.42); RED BLOOD COUNT 3.33 mill/uL (4.70-6.10); RED CELL DISTRI WIDTH 14.4 % (11.5-15.5)
[2021-06-17 19:24] LABS: ANION GAP 9 (6-22 (CALC)); BUN 13 mg/dL (8-23); BUN/CREATININE RATIO 20 (12-20 (CALC)); CARBON DIOXIDE 28 mmol/l (22-30); CHLORIDE 95 mmol/l (95-108); CREATININE 0.6 mg/dL (0.7-1.3); GFR > 60 ML/MIN (>=60 (CALC)); GFR FOR AFR.AMER. > 60 ML/MIN (>=60 (CALC)); POTASSIUM 4.3 mmol/l (3.5-5.1); SODIUM 128 mmol/l (137-146)
[2021-08-05] MEDS ORDERED: GABAPENTIN100 MG PO (14:14)
[2021-08-05] MEDS ORDERED: DIGOXIN0.125 MG PO (14:15)
[2021-08-05] MEDS ORDERED: TAMSULOSIN HCL0.4 MG PO (14:15)
[2021-08-05] MEDS ORDERED: INDERAL10 M1 PO (14:15)
[2021-08-05] MEDS ORDERED: ACETAMINOP160 MG/5 M PO (14:16)
[2021-08-05] MEDS ORDERED: PAROXETINE10 MG PO (14:16)
== END 2021-06-17 19:31 | disposition left against medical advice (07) ==
LOC: ED 16:13
PROVIDERS: Family Medicine
PROC: 0T9B30Z Drainage of Bladder with Drainage Device, Percutaneous Approach (ICD-10-PCS; principal; 2021-06-17)
DX: T83.020A Displacement of cystostomy catheter, initial encounter (principal); I10 Essential (primary) hypertension; G40.909 Epilepsy, unspecified, not intractable, without status epilepticus; F41.9 Anxiety disorder, unspecified; J44.9 Chronic obstructive pulmonary disease, unspecified; E78.5 Hyperlipidemia, unspecified; F17.200 Nicotine dependence, unspecified, uncomplicated; Y83.3 Surgical operation with formation of external stoma as the cause of abnormal reaction of the patient, or of later complication, without mention of misadventure at the time of the procedure; Z91.19 Patient's noncompliance with other medical treatment and regimen

== ENCOUNTER 2021-08-10 10:28 | Emergency (ER) | payer MEDICARE, MEDICAID ==
[~2021-08-10] VITALS: Ht 182.9 cm; Wt 86.0 kg
[~2021-08-10 10:28] MED LIST changes: +ACETAMINOP160 MG/5 M PO; +DIGOXIN0.125 MG PO; +GABAPENTIN100 MG PO; +INDERAL10 M1 PO
[2021-08-10] MEDS ORDERED: ELIQUIS5 MG PO (11:21)
[2021-08-10 14:34] LABS: HEMATOCRIT 32.6 % (39.0-50.0); HEMOGLOBIN 10.5 g/dl (14.0-18.0); IMMATURE GRANULOCYTES 0.3 % (0.0-5.0); MEAN CELL VOLUME 90.6 fL CALC (80.0-100.0); MEAN CORPUSCULAR HGB 29.2 pG CALC (26.0-32.0); MEAN CORPUSCULAR HGB CONC 32.2 g/dL CAL (32.0-36.0); NEUT# 4.48 thou/uL (1.82-7.42); RED BLOOD COUNT 3.6 mill/uL (4.70-6.10); RED CELL DISTRI WIDTH 15.2 % (11.5-15.5)
[2021-08-10 14:46] LABS: ALBUMIN 3.3 g/dL (3.2-5.0); ALKALINE PHOSPHATASE 91 u/l (38-126); ANION GAP 10 (6-22 (CALC)); BILIRUBIN, TOTAL 0.5 mg/dL (0.0-1.4); BUN 6 mg/dL (8-23); BUN/CREATININE RATIO 13 (12-20 (CALC)); CARBON DIOXIDE 27 mmol/l (22-30); CHLORIDE 100 mmol/l (95-108); CREATININE 0.4 mg/dL (0.7-1.3); GFR > 60 ML/MIN (>=60 (CALC)); GFR FOR AFR.AMER. > 60 ML/MIN (>=60 (CALC)); POTASSIUM 4.4 mmol/l (3.5-5.1); SGOT/AST 22 u/l (19-48); SODIUM 133 mmol/l (137-146)
[2021-08-10 15:39] VITALS: BP 156/81
== END 2021-08-10 15:35 ==
LOC: ED 10:28
PROVIDERS: Family Medicine
DX: S72.434A Nondisplaced fracture of medial condyle of right femur, initial encounter for closed fracture (principal); I10 Essential (primary) hypertension; G40.909 Epilepsy, unspecified, not intractable, without status epilepticus; J44.9 Chronic obstructive pulmonary disease, unspecified; E78.5 Hyperlipidemia, unspecified; F41.9 Anxiety disorder, unspecified; F17.200 Nicotine dependence, unspecified, uncomplicated; W19.XXXA Unspecified fall, initial encounter; Z95.820 Peripheral vascular angioplasty status with implants and grafts

== ENCOUNTER 2022-08-01 19:24 | Emergency (ER) | payer MEDICARE, MEDICAID ==
[~2022-08-01] VITALS: Ht 182.9 cm; Wt 78.1 kg
[~2022-08-01 19:24] MED LIST changes: +ELIQUIS5 MG PO
[2022-08-01 20:09] LABS: HEMATOCRIT 38.5 % (39.0-50.0); IMMATURE GRANULOCYTES 0.1 % (0.0-5.0); MEAN CELL VOLUME 95.1 fL CALC (80.0-100.0); MEAN CORPUSCULAR HGB 32.1 pG CALC (26.0-32.0); MEAN CORPUSCULAR HGB CONC 33.8 g/dL CAL (32.0-36.0); NEUT# 5.17 thou/uL (1.82-7.42); RED BLOOD COUNT 4.05 mill/uL (4.70-6.10); RED CELL DISTRI WIDTH 13.3 % (11.5-15.5)
[2022-08-01 20:36] LABS: ALBUMIN 3.8 g/dL (3.2-5.0); ALKALINE PHOSPHATASE 83 u/l (38-126); ANION GAP 14 (6-22 (CALC)); BILIRUBIN, TOTAL 0.6 mg/dL (0.0-1.4); BUN 10 mg/dL (8-23); BUN/CREATININE RATIO 16 (12-20 (CALC)); CARBON DIOXIDE 24 mmol/l (22-30); CHLORIDE 97 mmol/l (95-108); CREATININE 0.6 mg/dL (0.7-1.3); GFR FOR AFR.AMER. > 60 ML/MIN (>=60 (CALC)); GFR OTHER RACES > 60 ML/MIN (>=60 (CALC)); MAGNESIUM 1.7 mg/dL (1.6-2.3); POTASSIUM 4.5 mmol/l (3.5-5.1); SGOT/AST 27 u/l (19-48); SODIUM 130 mmol/l (137-146); TOTAL PROTEIN 7.6 g/dL (6.3-8.2)
[2022-08-01 20:48] LABS: MYOGLOBIN 35 ng/mL (0 - 121)
[2022-08-01] MEDS ORDERED: VIBRAMYCIN100 M2 PO (21:31)
[2022-08-01] MEDS ORDERED: PREDNISONE50 MG PO (21:31)
[2022-08-01 21:52] VITALS: BP 175/100
== END 2022-08-01 22:12 | disposition home or self-care (01) ==
LOC: ED 19:24
PROVIDERS: Family Medicine
DX: J44.1 Chronic obstructive pulmonary disease with (acute) exacerbation (principal); I10 Essential (primary) hypertension; G40.909 Epilepsy, unspecified, not intractable, without status epilepticus; E78.5 Hyperlipidemia, unspecified; F17.200 Nicotine dependence, unspecified, uncomplicated; Z95.820 Peripheral vascular angioplasty status with implants and grafts; Z20.822 Contact with and (suspected) exposure to COVID-19

== ENCOUNTER 2022-09-08 02:54 | Emergency (ER) | payer MEDICARE, MEDICAID ==
[~2022-09-08] VITALS: Ht 182.9 cm; Wt 74.5 kg
[2022-09-08] VITALS (12 sets, daily range): BP systolic 146–195; BP diastolic 101–119
[~2022-09-08 02:54] MED LIST changes: +PREDNISONE50 MG PO; +VIBRAMYCIN100 M2 PO
[2022-09-08 03:29] LABS: HEMATOCRIT 37.7 % (39.0-50.0); HEMOGLOBIN 12.7 g/dl (14.0-18.0); IMMATURE GRANULOCYTES 0.6 % (0.0-5.0); MEAN CORPUSCULAR HGB CONC 33.7 g/dL CAL (32.0-36.0); NEUT# 6.04 thou/uL (1.82-7.42); RED BLOOD COUNT 3.97 mill/uL (4.70-6.10); RED CELL DISTRI WIDTH 13.1 % (11.5-15.5)
[2022-09-08 03:40] LABS: ALBUMIN 3.7 g/dL (3.2-5.0); ALKALINE PHOSPHATASE 64 u/l (38-126); ANION GAP 13 (6-22 (CALC)); BILIRUBIN, TOTAL 0.6 mg/dL (0.0-1.4); BUN 11 mg/dL (8-23); BUN/CREATININE RATIO 13 (12-20 (CALC)); CARBON DIOXIDE 25 mmol/l (22-30); CHLORIDE 101 mmol/l (95-108); CREATININE 0.8 mg/dL (0.7-1.3); GFR FOR AFR.AMER. > 60 ML/MIN (>=60 (CALC)); GFR OTHER RACES > 60 ML/MIN (>=60 (CALC)); POTASSIUM 4.7 mmol/l (3.5-5.1); SGOT/AST 29 u/l (19-48); SODIUM 134 mmol/l (137-146); TOTAL PROTEIN 7.7 g/dL (6.3-8.2)
[2022-09-08 03:52] LABS: MYOGLOBIN 36 ng/mL (0 - 121)
[2022-09-08 05:41] LABS: URINE BILIRUBIN - DIPSTICK NEGATIVE (NEGATIVE); URINE BLOOD DIPSTICK LARGE (NEGATIVE); URINE COLOR YELLOW; URINE GLUCOSE - DIPSTICK NEGATIVE (NEGATIVE); URINE LEUK ESTERASE TRACE (NEGATIVE); URINE PH 6.5 (4.5-8.0); URINE PROTEIN - DIPSTICK TRACE mg/dL (NEG-TRACE); URINE UROBILINOGEN - DIPSTICK 0.2 E.U./dL (0.2)
[2022-09-08 05:48] LABS: URINE NITRITE - DIPSTICK POSITIVE (Negative)
[2022-09-08 05:49] LABS: URINE KETONE NEGATIVE (NEGATIVE)
[2022-09-08 05:51] LABS: URINE BACTERIA MANY hpf; URINE EPITHELIAL CELLS FEW EPI/hpf (0-FEW); URINE RBC 25-50 RBC/hpf (0-5)
== END 2022-09-08 07:16 | disposition short-term general hospital (02) ==
LOC: ED 02:54 → ED-I 05:13 → ED 07:16
PROVIDERS: Emergency Medicine
DX: J44.1 Chronic obstructive pulmonary disease with (acute) exacerbation (principal); J91.8 Pleural effusion in other conditions classified elsewhere; I10 Essential (primary) hypertension; F10.10 Alcohol abuse, uncomplicated; G40.909 Epilepsy, unspecified, not intractable, without status epilepticus; F41.9 Anxiety disorder, unspecified; E78.5 Hyperlipidemia, unspecified; F17.200 Nicotine dependence, unspecified, uncomplicated; Z20.822 Contact with and (suspected) exposure to COVID-19
CPT/HCPCS: J2060

== ENCOUNTER 2022-10-17 12:47 | Emergency (ER) | payer MEDICARE, MEDICAID ==
[2022-10-18] MEDS ORDERED: CEPHALEXIN500 M1 PO (10:26)
[2022-10-18] MEDS ORDERED: PERCOCET 10/31 COMBO PO (10:26)
== END 2022-10-17 13:50 | disposition left against medical advice (07) ==
LOC: ED 12:47 → LWOBS 13:32
DX: Z53.21 Procedure and treatment not carried out due to patient leaving prior to being seen by health care provider (principal)

== ENCOUNTER 2022-10-18 09:07 | Emergency (ER) | payer MEDICARE, MEDICAID ==
[~2022-10-18] VITALS: Ht 182.9 cm; Wt 77.0 kg
[2022-10-18 09:20] VITALS: BP 187/98
[2022-10-18 09:30] VITALS: BP 167/100
[2022-10-18 09:45] VITALS: BP 166/95
[2022-10-18 10:00] VITALS: BP 149/92
[2022-10-18 10:15] VITALS: BP 174/100
[2022-10-18] MEDS ORDERED: CEPHALEXIN500 M1 PO (10:26)
[2022-10-18] MEDS ORDERED: PERCOCET 10/31 COMBO PO (10:26)
[2022-10-18 10:30] VITALS: BP 168/89
== END 2022-10-18 10:43 | disposition left against medical advice (07) ==
LOC: ED 09:07
DX: I73.9 Peripheral vascular disease, unspecified (principal); I10 Essential (primary) hypertension; J44.9 Chronic obstructive pulmonary disease, unspecified; G40.909 Epilepsy, unspecified, not intractable, without status epilepticus; F41.9 Anxiety disorder, unspecified; F17.200 Nicotine dependence, unspecified, uncomplicated; Z53.29 Procedure and treatment not carried out because of patient's decision for other reasons; Z95.820 Peripheral vascular angioplasty status with implants and grafts

== ENCOUNTER 2022-10-19 09:53 | Emergency (ER) | payer MEDICARE, MEDICAID ==
[~2022-10-19] VITALS: Ht 182.9 cm; Wt 75.0 kg
[2022-10-19] VITALS (11 sets, daily range): BP systolic 115–172; BP diastolic 75–102
[~2022-10-19 09:53] MED LIST changes: +PERCOCET 10/31 COMBO PO
[2022-10-19 12:02] LABS: BASO% 0.7 % (0-3); EOS% 2.5 % (0-8); HEMATOCRIT 37.9 % (39.0-50.0); LYMPH% 22.4 % (15-41); MEAN CELL VOLUME 94.8 fL CALC (80.0-100.0); MEAN CORPUSCULAR HGB 32.5 pG CALC (26.0-32.0); MEAN CORPUSCULAR HGB CONC 34.3 g/dL CAL (32.0-36.0); MONO% 10.4 % (2-13); NEUT# 3.77 thou/uL (1.82-7.42)
[2022-10-19 12:14] LABS: INTERNATIONAL NORMALIZED RATIO 1.1 RATIO (0.7-1.3)
[2022-10-19 12:16] LABS: ALBUMIN 3.8 g/dL (3.2-5.0); ALKALINE PHOSPHATASE 89 u/l (38-126); ANION GAP 14 (6-22 (CALC)); BILIRUBIN, TOTAL 0.6 mg/dL (0.0-1.4); BUN 8 mg/dL (8-23); BUN/CREATININE RATIO 11 (12-20 (CALC)); CARBON DIOXIDE 26 mmol/l (22-30); CHLORIDE 100 mmol/l (95-108); CREATININE 0.7 mg/dL (0.7-1.3); GFR FOR AFR.AMER. > 60 ML/MIN (>=60 (CALC)); GFR OTHER RACES > 60 ML/MIN (>=60 (CALC)); LIPASE 25 u/l (23-300); MAGNESIUM 1.7 mg/dL (1.6-2.3); POTASSIUM 4.6 mmol/l (3.5-5.1); SGOT/AST 24 u/l (19-48); SODIUM 135 mmol/l (137-146); TOTAL PROTEIN 7.5 g/dL (6.3-8.2)
[2022-10-19 12:30] LABS: CPK 97 u/l (52-200)
== END 2022-10-19 17:30 | disposition short-term general hospital (02) ==
LOC: ED 09:53
PROVIDERS: Internal Medicine
DX: I73.9 Peripheral vascular disease, unspecified (principal); L03.115 Cellulitis of right lower limb; I10 Essential (primary) hypertension; G40.909 Epilepsy, unspecified, not intractable, without status epilepticus; J44.9 Chronic obstructive pulmonary disease, unspecified; E78.5 Hyperlipidemia, unspecified; F17.200 Nicotine dependence, unspecified, uncomplicated; Z95.820 Peripheral vascular angioplasty status with implants and grafts

== ENCOUNTER 2022-11-04 14:43 | Emergency (ER) | payer MEDICARE, MEDICAID ==
[2022-11-04] VITALS (17 sets, daily range): BP systolic 106–144; BP diastolic 57–96
[~2022-11-04] VITALS: Ht 200.7 cm; Wt 75.0 kg
[2022-11-04 15:21] LABS: BASO% 0.2 % (0-3); EOS% 0.4 % (0-8); HEMATOCRIT 38.8 % (39.0-50.0); HEMOGLOBIN 13.5 g/dl (14.0-18.0); IMMATURE GRANULOCYTES 0.3 % (0.0-5.0); LYMPH% 11.5 % (15-41); MEAN CELL VOLUME 93.5 fL CALC (80.0-100.0); MEAN CORPUSCULAR HGB 32.5 pG CALC (26.0-32.0); MEAN CORPUSCULAR HGB CONC 34.8 g/dL CAL (32.0-36.0); MONO% 7.6 % (2-13); NEUT# 8.9 thou/uL (1.82-7.42); RED BLOOD COUNT 4.15 mill/uL (4.70-6.10); RED CELL DISTRI WIDTH 14.1 % (11.5-15.5)
[2022-11-04] MEDS ORDERED: GABAPENTIN300 M2 (15:29)
[2022-11-04] MEDS ORDERED: BRILINTA90 MG PO (15:30)
[2022-11-04] MEDS ORDERED: POTASSIUM CHLO20 MEQ PO (15:31)
[2022-11-04] MEDS ORDERED: MYRBETRIQ50 MG (15:31)
[2022-11-04] MEDS ORDERED: FUROSEMIDE20 MG PO (15:32)
[2022-11-04] MEDS ORDERED: TRAZODONE50 MG PO (15:32)
[2022-11-04] MEDS ORDERED: MAGNESIUM500 M1 PO (15:33)
[2022-11-04 15:37] LABS: ALBUMIN 3.7 g/dL (3.2-5.0); ALKALINE PHOSPHATASE 74 u/l (38-126); ANION GAP 12 (6-22 (CALC)); BILIRUBIN, TOTAL 1.1 mg/dL (0.0-1.4); BUN 12 mg/dL (8-23); BUN/CREATININE RATIO 14 (12-20 (CALC)); CARBON DIOXIDE 24 mmol/l (22-30); CHLORIDE 93 mmol/l (95-108); CREATININE 0.9 mg/dL (0.7-1.3); GFR FOR AFR.AMER. > 60 ML/MIN (>=60 (CALC)); GFR OTHER RACES > 60 ML/MIN (>=60 (CALC)); POTASSIUM 3.8 mmol/l (3.5-5.1); SGOT/AST 36 u/l (19-48); SODIUM 125 mmol/l (137-146); TOTAL PROTEIN 7.9 g/dL (6.3-8.2)
[2022-11-04] MEDS ORDERED: PERCOCET 10/31 COMBO PO (19:24)
== END 2022-11-04 19:55 | disposition left against medical advice (07) ==
LOC: ED 14:43
PROVIDERS: Family Medicine
DX: L03.115 Cellulitis of right lower limb (principal); I73.9 Peripheral vascular disease, unspecified; T82.898A Other specified complication of vascular prosthetic devices, implants and grafts, initial encounter; I10 Essential (primary) hypertension; J44.9 Chronic obstructive pulmonary disease, unspecified; G40.909 Epilepsy, unspecified, not intractable, without status epilepticus; F41.9 Anxiety disorder, unspecified; E78.5 Hyperlipidemia, unspecified; F17.210 Nicotine dependence, cigarettes, uncomplicated; Y83.2 Surgical operation with anastomosis, bypass or graft as the cause of abnormal reaction of the patient, or of later complication, without mention of misadventure at the time of the procedure; Z95.820 Peripheral vascular angioplasty status with implants and grafts; Z53.29 Procedure and treatment not carried out because of patient's decision for other reasons; Z20.822 Contact with and (suspected) exposure to COVID-19

== ENCOUNTER 2022-11-07 14:51 | Emergency (ER) | payer MEDICARE, MEDICAID ==
[~2022-11-07] VITALS: Ht 200.7 cm; Wt 68.0 kg
[~2022-11-07 14:51] MED LIST changes: +BRILINTA90 MG PO; +FUROSEMIDE20 MG PO; +GABAPENTIN300 M2; +MAGNESIUM500 M1 PO; +MYRBETRIQ50 MG; +POTASSIUM CHLO20 MEQ PO; +TRAZODONE50 MG PO
[2022-11-07 15:55] LABS: BASO% 0.3 % (0-3); EOS% 1.1 % (0-8); HEMATOCRIT 35.1 % (39.0-50.0); HEMOGLOBIN 11.8 g/dl (14.0-18.0); IMMATURE GRANULOCYTES 0.3 % (0.0-5.0); LYMPH% 16.7 % (15-41); MEAN CELL VOLUME 96.4 fL CALC (80.0-100.0); MEAN CORPUSCULAR HGB 32.4 pG CALC (26.0-32.0); MEAN CORPUSCULAR HGB CONC 33.6 g/dL CAL (32.0-36.0); MONO% 8.7 % (2-13); NEUT# 6.66 thou/uL (1.82-7.42); NEUT% 72.9 % (42-76); RED BLOOD COUNT 3.64 mill/uL (4.70-6.10); RED CELL DISTRI WIDTH 14.3 % (11.5-15.5)
[2022-11-07 16:37] LABS: ALBUMIN 3.2 g/dL (3.2-5.0); ALKALINE PHOSPHATASE 69 u/l (38-126); ANION GAP 16 (6-22 (CALC)); BILIRUBIN, TOTAL 0.3 mg/dL (0.0-1.4); BUN 13 mg/dL (8-23); BUN/CREATININE RATIO 14 (12-20 (CALC)); CARBON DIOXIDE 25 mmol/l (22-30); CHLORIDE 93 mmol/l (95-108); CREATININE 0.9 mg/dL (0.7-1.3); GFR FOR AFR.AMER. > 60 ML/MIN (>=60 (CALC)); GFR OTHER RACES > 60 ML/MIN (>=60 (CALC)); POTASSIUM 3.5 mmol/l (3.5-5.1); SGOT/AST 26 u/l (19-48); SODIUM 130 mmol/l (137-146); TOTAL PROTEIN 6.6 g/dL (6.3-8.2)
[2022-11-07 17:16] LABS: ACT PARTIAL THROMBO TIME 30.8 SECONDS (20.0-32.5); INTERNATIONAL NORMALIZED RATIO 1.3 RATIO (0.7-1.3)
[2022-11-07 18:00] VITALS: BP 117/65
== END 2022-11-07 18:01 | disposition short-term general hospital (02) ==
LOC: ED 14:51
PROVIDERS: Family Medicine
DX: I73.9 Peripheral vascular disease, unspecified (principal); I10 Essential (primary) hypertension; J44.9 Chronic obstructive pulmonary disease, unspecified; G40.909 Epilepsy, unspecified, not intractable, without status epilepticus; F41.9 Anxiety disorder, unspecified; E78.5 Hyperlipidemia, unspecified; F17.210 Nicotine dependence, cigarettes, uncomplicated; Z95.820 Peripheral vascular angioplasty status with implants and grafts
CPT/HCPCS: J1644

== ENCOUNTER 2022-12-30 19:39 | Emergency (ER) | payer MEDICARE, MEDICAID ==
[~2022-12-30] VITALS: Ht 200.7 cm; Wt 65.0 kg
[2022-12-30 20:37] LABS: BASO% 0.3 % (0-3); EOS% 2.2 % (0-8); HEMATOCRIT 26.6 % (39.0-50.0); HEMOGLOBIN 8.3 g/dl (14.0-18.0); IMMATURE GRANULOCYTES 0.2 % (0.0-5.0); LYMPH% 28.3 % (15-41); MEAN CORPUSCULAR HGB 28.7 pG CALC (26.0-32.0); MEAN CORPUSCULAR HGB CONC 31.2 g/dL CAL (32.0-36.0); MONO% 9.3 % (2-13); NEUT# 5.11 thou/uL (1.82-7.42); NEUT% 59.7 % (42-76); RED BLOOD COUNT 2.89 mill/uL (4.70-6.10); RED CELL DISTRI WIDTH 15.1 % (11.5-15.5)
[2022-12-30 20:48] LABS: ALBUMIN 2.9 g/dL (3.2-5.0); ALKALINE PHOSPHATASE 79 u/l (38-126); ANION GAP 7 (6-22 (CALC)); BUN 9 mg/dL (8-23); BUN/CREATININE RATIO 9 (12-20 (CALC)); CARBON DIOXIDE 30 mmol/l (22-30); CHLORIDE 92 mmol/l (95-108); GFR FOR AFR.AMER. > 60 ML/MIN (>=60 (CALC)); GFR OTHER RACES > 60 ML/MIN (>=60 (CALC)); POTASSIUM 4.2 mmol/l (3.5-5.1); SGOT/AST 21 u/l (19-48); SODIUM 125 mmol/l (137-146); TOTAL PROTEIN 6.6 g/dL (6.3-8.2)
[2022-12-30 20:51] LABS: ACT PARTIAL THROMBO TIME 31.9 SECONDS (20.0-32.5); INTERNATIONAL NORMALIZED RATIO 1.2 RATIO (0.7-1.3); PROTHROMBIN TIME 11.8 SECONDS (9.0-12.5)
[2022-12-30] MEDS ORDERED: SOD CHLORIDE1 G2 OD (22:05)
[2022-12-30 22:45] VITALS: BP 123/74
== END 2022-12-30 23:00 | disposition home or self-care (01) ==
LOC: ED 19:39
PROVIDERS: Family Medicine
DX: J44.9 Chronic obstructive pulmonary disease, unspecified (principal); J91.8 Pleural effusion in other conditions classified elsewhere; E87.1 Hypo-osmolality and hyponatremia; I10 Essential (primary) hypertension; G40.909 Epilepsy, unspecified, not intractable, without status epilepticus; F41.9 Anxiety disorder, unspecified; E78.5 Hyperlipidemia, unspecified; I73.9 Peripheral vascular disease, unspecified; Z95.820 Peripheral vascular angioplasty status with implants and grafts; Z87.891 Personal history of nicotine dependence

== ENCOUNTER 2023-01-03 14:18 | Inpatient (IN) | payer MEDICARE, MEDICAID ==
[~2023-01-03] VITALS: Ht 200.7 cm; Wt 65.2 kg
[~2023-01-03 14:18] MED LIST changes: +SOD CHLORIDE1 G2 OD
[2023-01-03 15:15] VITALS: BP 120/79
[2023-01-03 17:17] LABS: BASO% 0.5 % (0-3); HEMATOCRIT 25.8 % (39.0-50.0); HEMOGLOBIN 7.9 g/dl (14.0-18.0); IMMATURE GRANULOCYTES 0.3 % (0.0-5.0); LYMPH% 24.5 % (15-41); MEAN CELL VOLUME 93.5 fL CALC (80.0-100.0); MEAN CORPUSCULAR HGB 28.6 pG CALC (26.0-32.0); MEAN CORPUSCULAR HGB CONC 30.6 g/dL CAL (32.0-36.0); MONO% 8.4 % (2-13); NEUT# 6.87 thou/uL (1.82-7.42); NEUT% 65.3 % (42-76); RED BLOOD COUNT 2.76 mill/uL (4.70-6.10); RED CELL DISTRI WIDTH 15.3 % (11.5-15.5)
[2023-01-03 17:21] LABS: ALBUMIN 3.1 g/dL (3.2-5.0); ALKALINE PHOSPHATASE 86 u/l (38-126); ANION GAP 8 (6-22 (CALC)); BUN 10 mg/dL (8-23); BUN/CREATININE RATIO 14 (12-20 (CALC)); CARBON DIOXIDE 27 mmol/l (22-30); CHLORIDE 98 mmol/l (95-108); CREATININE 0.7 mg/dL (0.7-1.3); GFR FOR AFR.AMER. > 60 ML/MIN (>=60 (CALC)); GFR OTHER RACES > 60 ML/MIN (>=60 (CALC)); POTASSIUM 4.3 mmol/l (3.5-5.1); SGOT/AST 23 u/l (19-48); SODIUM 128 mmol/l (137-146); TOTAL PROTEIN 7.1 g/dL (6.3-8.2)
[2023-01-03 17:23] LABS: BILIRUBIN, TOTAL 0.2 mg/dL (0.2-1.3)
[2023-01-03 18:36] LABS: URINE BILIRUBIN - DIPSTICK NEGATIVE (NEGATIVE); URINE BLOOD DIPSTICK LARGE (NEGATIVE); URINE COLOR YELLOW; URINE GLUCOSE - DIPSTICK NEGATIVE (NEGATIVE); URINE KETONE NEGATIVE (NEGATIVE); URINE PROTEIN - DIPSTICK NEGATIVE (NEG-TRACE); URINE UROBILINOGEN - DIPSTICK 0.2 E.U./dL (0.2)
[2023-01-03 18:37] LABS: DIGOXIN 0.6 ng/mL (0.8-2.0)
[2023-01-03 18:38] LABS: URINE LEUK ESTERASE LARGE (NEGATIVE); URINE NITRITE - DIPSTICK NEGATIVE (Negative)
[2023-01-03 18:45] LABS: URINE BACTERIA MANY hpf; URINE WBC TNTC WBC/hpf (0-5)
[2023-01-03 20:35] VITALS: BP 121/71
[2023-01-03] MEDS ORDERED: OXYCODONE10 M1 PO (22:39)
[2023-01-03 23:51] VITALS: BP 132/66
[2023-01-04] VITALS (8 sets, daily range): BP systolic 128–164; BP diastolic 76–92
[2023-01-04 05:56] LABS: BASO% 0.4 % (0-3); EOS% 1.8 % (0-8); HEMATOCRIT 25.8 % (39.0-50.0); HEMOGLOBIN 7.9 g/dl (14.0-18.0); IMMATURE GRANULOCYTES 0.3 % (0.0-5.0); LYMPH% 27.8 % (15-41); MEAN CELL VOLUME 93.8 fL CALC (80.0-100.0); MEAN CORPUSCULAR HGB 28.7 pG CALC (26.0-32.0); MEAN CORPUSCULAR HGB CONC 30.6 g/dL CAL (32.0-36.0); MONO% 8.2 % (2-13); NEUT# 4.87 thou/uL (1.82-7.42); NEUT% 61.5 % (42-76); RED BLOOD COUNT 2.75 mill/uL (4.70-6.10); RED CELL DISTRI WIDTH 15.2 % (11.5-15.5)
[2023-01-04 06:06] LABS: ALBUMIN 2.5 g/dL (3.2-5.0); ALKALINE PHOSPHATASE 76 u/l (38-126); ANION GAP 6 (6-22 (CALC)); BUN 9 mg/dL (8-23); BUN/CREATININE RATIO 15 (12-20 (CALC)); CARBON DIOXIDE 24 mmol/l (22-30); CHLORIDE 102 mmol/l (95-108); CREATININE 0.6 mg/dL (0.7-1.3); GFR FOR AFR.AMER. > 60 ML/MIN (>=60 (CALC)); GFR OTHER RACES > 60 ML/MIN (>=60 (CALC)); MAGNESIUM 1.7 mg/dL (1.6-2.3); POTASSIUM 4.1 mmol/l (3.5-5.1); SGOT/AST 16 u/l (19-48); SODIUM 128 mmol/l (137-146); TOTAL PROTEIN 6.1 g/dL (6.3-8.2)
[2023-01-05 03:53] VITALS: BP 137/86
[2023-01-05 05:35] LABS: BASO% 0.4 % (0-3); IMMATURE GRANULOCYTES 0.3 % (0.0-5.0); MEAN CORPUSCULAR HGB 28.8 pG CALC (26.0-32.0); MONO% 10.3 % (2-13); NEUT# 4.77 thou/uL (1.82-7.42); RED BLOOD COUNT 3.47 mill/uL (4.70-6.10); RED CELL DISTRI WIDTH 15.4 % (11.5-15.5)
[2023-01-05 05:46] LABS: HEMATOCRIT 33.3 % (39.0-50.0)
[2023-01-05 06:08] LABS: ALBUMIN 2.7 g/dL (3.2-5.0); ALKALINE PHOSPHATASE 84 u/l (38-126); ANION GAP 11 (6-22 (CALC)); BUN 10 mg/dL (8-23); BUN/CREATININE RATIO 14 (12-20 (CALC)); CARBON DIOXIDE 23 mmol/l (22-30); CHLORIDE 99 mmol/l (95-108); CREATININE 0.7 mg/dL (0.7-1.3); GFR FOR AFR.AMER. > 60 ML/MIN (>=60 (CALC)); GFR OTHER RACES > 60 ML/MIN (>=60 (CALC)); MAGNESIUM 1.5 mg/dL (1.6-2.3); POTASSIUM 4.1 mmol/l (3.5-5.1); SGOT/AST 20 u/l (19-48); SODIUM 129 mmol/l (137-146); TOTAL PROTEIN 6.4 g/dL (6.3-8.2)
[2023-01-05 06:09] LABS: BILIRUBIN, TOTAL 0.2 mg/dL (0.2-1.3)
[2023-01-05 06:47] VITALS: BP 171/89
[2023-01-05 11:55] VITALS: BP 120/88
[2023-01-05 16:45] VITALS: BP 130/78
[2023-01-05 19:06] VITALS: BP 122/80
[2023-01-05 23:56] VITALS: BP 109/71
[2023-01-06 05:22] LABS: BASO% 0.4 % (0-3); EOS% 1.4 % (0-8); HEMOGLOBIN 8.8 g/dl (14.0-18.0); IMMATURE GRANULOCYTES 0.1 % (0.0-5.0); LYMPH% 25.5 % (15-41); MEAN CORPUSCULAR HGB 28.9 pG CALC (26.0-32.0); MEAN CORPUSCULAR HGB CONC 32.2 g/dL CAL (32.0-36.0); MONO% 11.3 % (2-13); NEUT# 4.98 thou/uL (1.82-7.42); NEUT% 61.3 % (42-76); RED BLOOD COUNT 3.04 mill/uL (4.70-6.10); RED CELL DISTRI WIDTH 15.4 % (11.5-15.5)
[2023-01-06 05:25] LABS: ALBUMIN 2.3 g/dL (3.2-5.0); ALKALINE PHOSPHATASE 71 u/l (38-126); BUN 8 mg/dL (8-23); BUN/CREATININE RATIO 12 (12-20 (CALC)); CHLORIDE 99 mmol/l (95-108); CREATININE 0.7 mg/dL (0.7-1.3); GFR FOR AFR.AMER. > 60 ML/MIN (>=60 (CALC)); GFR OTHER RACES > 60 ML/MIN (>=60 (CALC)); MAGNESIUM 1.6 mg/dL (1.6-2.3); POTASSIUM 3.5 mmol/l (3.5-5.1); SGOT/AST 14 u/l (19-48); SODIUM 129 mmol/l (137-146); TOTAL PROTEIN 5.5 g/dL (6.3-8.2)
[2023-01-06 05:32] LABS: HEMATOCRIT 27.3 % (39.0-50.0); MEAN CELL VOLUME 89.8 fL CALC (80.0-100.0)
[2023-01-06 05:33] LABS: ANION GAP 5 (6-22 (CALC)); CARBON DIOXIDE 29 mmol/l (22-30)
[2023-01-06 08:32] VITALS: BP 118/72
[2023-01-06 14:56] VITALS: BP 140/76
[2023-01-06] MEDS ORDERED: PROTONIX40 M2 PO (17:19)
[2023-01-06] MEDS ORDERED: VIBRAMYCIN100 M2 PO (17:20)
[2023-01-06] MEDS ORDERED: XANAX1 MG PO (17:23)
[2023-01-06] MEDS ORDERED: PERCOCET 10/31 COMBO PO (17:23)
[2023-01-06 19:00] VITALS: BP 140/76
[2023-01-07 04:00] VITALS: BP 140/76
== END 2023-01-06 17:51 | disposition home health service (06) | DRG 194 ==
LOC: ED 14:18 → MS2 19:16
PROVIDERS: Family Medicine; Nurse Practitioner Family; ADMIT Internal Medicine; ATTEND Internal Medicine
DX: J18.9 Pneumonia, unspecified organism (principal); E87.1 Hypo-osmolality and hyponatremia; N39.0 Urinary tract infection, site not specified; I70.262 Atherosclerosis of native arteries of extremities with gangrene, left leg; J44.0 Chronic obstructive pulmonary disease with (acute) lower respiratory infection; J91.8 Pleural effusion in other conditions classified elsewhere; I11.0 Hypertensive heart disease with heart failure; I50.9 Heart failure, unspecified; I48.91 Unspecified atrial fibrillation; D63.8 Anemia in other chronic diseases classified elsewhere; R19.5 Other fecal abnormalities; G40.909 Epilepsy, unspecified, not intractable, without status epilepticus; E78.5 Hyperlipidemia, unspecified; F41.9 Anxiety disorder, unspecified; B96.1 Klebsiella pneumoniae [K. pneumoniae] as the cause of diseases classified elsewhere; Z95.820 Peripheral vascular angioplasty status with implants and grafts; Z99.81 Dependence on supplemental oxygen; Z86.711 Personal history of pulmonary embolism; Z87.891 Personal history of nicotine dependence; Z89.611 Acquired absence of right leg above knee; Z79.01 Long term (current) use of anticoagulants; Z90.2 Acquired absence of lung [part of]; Z79.02 Long term (current) use of antithrombotics/antiplatelets
CPT/HCPCS: J3475; Q9967; S0164